=== PATIENT | male | born 1955 | race Caucasian/White ===

== ENCOUNTER 2016-09-04 10:50 | Emergency (ER) | payer BC ==
[2016-09-04 11:41] VITALS: BP 145/81
--- NOTE | 2016-09-05 13:03 | UC ---
Christo Adame Salem, scribed for [facility] kong MD on 09/04/16 at 1227 . Skin Complaint HPI - HPI Summary HPI Summary: In Room note: Patient is a 61 y/o male who presents to the with a concern of a tick bite on RUE for unknown duration of time and on his neck since yesterday. Pt ahs no hx of Lyme disease. 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 MD note: VSS, 145/81, Visit hx: non-contributory. On no hypertensive medication. Nurses note: C/o tick bite on R upper arm and just below L side of clavicle area that pt noticed yesterday. 2- states L 3rd finger that he has pain with for a few month. - History of Current Complaint Chief Complaint: UCSkin Time Seen by Provider: 09/04/16 12:14 Stated Complaint: TICK BITES, FINGER ISSUE Hx Obtained From: Patient Onset/Duration: Gradual Onset, Lasting Days, Still Present Timing: Constant Onset Severity: Moderate Current Severity: Moderate Location: Other - RUE and neck. Character: Redness Aggravating: Nothing Alleviating: Nothing Associated Signs & Symptoms: Positive: Negative Related History: Insect Bite/Sting - Possible. - Allergy/Home Medications Allergies/Adverse Reactions: Allergies Allergy/AdvReac Type Severity Reaction Status Date / Time Clindamycin AdvReac Severe lump under Verified 09/04/16 11:34 [From Cleocin HCl] left axialle Review of Systems Constitutional: Negative Skin: Other - Possible tick bit to RUE and neck. Musculoskeletal: Other: - Left finger locks in place. (Pt is right handed.) All Other Systems Reviewed And Are Negative: Yes PMH/Surg Hx/FS Hx/Imm Hx Endocrine History Of: Denies: Diabetes, Thyroid Disease Cardiovascular History Of: Reports: Cardiac Disorders - ? HX OF ANGINA; ON BABY ASPIRIN Denies: Hypertension, Pacemaker/ICD Respiratory History Of: Denies: COPD, Asthma GI/ History Of: Denies: Ulcer - Surgical History Surgical History: Yes Surgery Procedure, Year, and Place: Moles removed from back. - Family History Known Family History: Positive: Diabetes - Social History Alcohol Use: Occasionally Substance Use Type: None Smoking Status (MU): Never Smoked Tobacco - Immunization History Most Recent Tetanus Shot: states he's had one within 5 years Vaccination Up to Date: Yes Physical Exam Triage Information Reviewed: Yes Appearance: Well-Appearing, No Pain Distress, Obese Vital Signs: Initial Vital Signs Temp 98.7 F 09/04/16 11:35 Pulse 70 09/04/16 11:35 Resp 18 09/04/16 11:35 BP 145/81 09/04/16 11:35 Pulse Ox 99 09/04/16 11:35 Vital Signs Reviewed: Yes Eyes: Positive: Conjunctiva Clear ENT: Positive: Hearing grossly normal, Pharynx normal, TMs normal. Negative: Muffled/hoarse voice Neck: Positive: Supple, No Lymphadenopathy Respiratory: Positive: Chest non-tender, Lungs clear, Normal breath sounds, No respiratory distress Cardiovascular: Positive: RRR, No Murmur Abdomen Description: Positive: Nontender, No Organomegaly, Soft Bowel Sounds: Positive: Present Musculoskeletal: Positive: ROM Intact, Other: - LEFT HAND LONG FINGERS SHOWS SOME DISCOMFORT WITH FLEXION AT PIP AND SOME ENLARGEMENT OF FLEXOR TENDON. WE DISCUSSED CONTRACTURE OF THIS TENDON. RIGHT UPPER ARM INNER ASPECT BICEP 1CM CROSSED LESION WITH SURROUNDING ERYTHEMA. ANOTHER SIMILAR LESION OF SAME SIZE TO THE LEFT OF STERNOCLAVICULAR NOTCH. NO AXILLARY ADENOPATHY. NO EVIDENCE OF CELLULITIS. Neurological: Positive: Alert Psychological: Positive: Age Appropriate Behavior Skin: Positive: Other - BILATERAL HANDS SHOW DYSHIDROTIC.. Negative: rashes Course/Dx - Course Course Of Treatment: Medications have been included in the original chart and reviewed. We discussed contraction of flexor tendon of long finger of left hand. We also discussed treating him for 2 weeks for presumptive Lyme disease because of the two locations of possible tick bites with surrounding erythema. We emphasized that I cannot be sure that is or isnt Lyme but that he should follow up with his PCP. Patient is Urgent/Emergent. BP elevated due to current condition w/o HTN in PMH. - Diagnoses Provider Diagnoses: Possible Lyme or early dupuytrens contracture. Discharge - Discharge Plan Condition: Stable Disposition: HOME Prescriptions: DOXYcycline CAP(*) [DOXYcycline 100MG CAP(*)] 100 mg PO BID #28 cap MDD 2 Patient Education Materials: Lyme Disease (ED) Referrals: Philip Murray MD [Primary Care Provider] - Additional Instructions: Thank you for helping us improve patient care by filling out the My Point Survey. WE DISCUSSED: 1. These small areas may be from a tick bite. There are 2 of them. It's hard to know but they look similar to a response to a tick bite and Lyme. Begin doxycycline, 100mg, twice a day for 14 days. Follow up with your doctor. Clean these areas twice a day. Use antibiotic ointment on these areas. 2. 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 Use the splint at night. Follow up with your doctor for orthopedic referral. Call for any questions or concerns. The documentation as recorded by the Christo fox Salem accurately reflects the service I personally performed and the decisions made by me, Robb Jacob MD.
== END 2016-09-04 12:40 | disposition home or self-care (01) ==
LOC: UCEAST 10:50
DX: M20.092 Other deformity of left finger(s) (principal); Z79.82 Long term (current) use of aspirin; L98.9 Disorder of the skin and subcutaneous tissue, unspecified
CPT/HCPCS: 99213; G0463

== ENCOUNTER 2019-05-01 09:55 | Emergency (ER) | payer BC ==
[2019-05-01] MEDS ORDERED: NS 0.9% 1000 ML** 1,000 ML IV ONE (10:49)
--- NOTE | 2019-05-01 10:53 | ED ---
Abdominal Pain/Male - HPI Summary HPI Summary: Patient is a 64 y/o M presenting to the ED for a chief complaint of diffuse abdominal pain that began around 12:00 on 04/29/19, 4 hours after eating [employer]. At that time, patient notes diffuse abdominal pain that prevented him from sleeping that night. On 04/30/19, patient reports that after drinking coffee, eating a breakfast sandwich, cake, and spaghetti during the day, he felt the abdominal pain again around midnight. The abdominal pain is described as beginning in the epigastrium and radiating to the lower back and the suprapubic region. Patient also notes changes in bowel movements recently that are described as "small and thin," which is unusual for him. The abdominal pain is currently improved, but patient continues to complain of abdominal discomfort. Patient denies hematochezia, nausea, vomiting, diarrhea, urinary symptoms, or groin pain. He was recommended to go to [facility] by his PCP. PMHx of cholelithiasis, ulcers, Crohn's disease, DM, or HTN is denied. PMSx is denied, but he notes a history of biopsy of moles on his back. FMHx is significant for DM and HTN. Patient takes aspirin daily. - History of Current Complaint Chief Complaint: EDAbdPain Stated Complaint: ABDOMINAL,BACK PAIN PER PT Time Seen by Provider: 05/01/19 10:40 Hx Obtained From: Patient Onset/Duration: Sudden Onset, Lasting Days, Resolved Timing: Intermittent Severity Initially: Mild Severity Currently: Mild Pain Intensity: 3 Pain Scale Used: 0-10 Numeric Location: Diffuse Radiates: Yes Radiates to: Back Aggravating Factor(s): Nothing Alleviating Factor(s): Nothing Associated Signs And Symptoms: Positive: Back Pain. Negative: Blood in Stool, Urinary Symptoms, Nausea, Vomiting, Diarrhea - Allergies/Home Medications Allergies/Adverse Reactions: Allergies Allergy/AdvReac Type Severity Reaction Status Date / Time MS Clindamycin AdvReac Severe lump under Verified 05/01/19 10:51 [From Cleocin HCl] left axialle PMH/Surg Hx/FS Hx/Imm Hx Previously Healthy: Yes Endocrine/Hematology History: Denies: Hx Diabetes, Hx Thyroid Disease Cardiovascular History: Denies: Hx Hypertension, Hx Pacemaker/ICD Respiratory History: Denies: Hx Asthma, Hx Chronic Obstructive Pulmonary Disease (COPD) GI History: Denies: Hx Crohn's Disease, Hx Ulcer History: Denies: Hx Renal Disease Sensory History: Denies: Hx Legally Blind, Hx Deafness, Hx Hearing Aid Opthamlomology History: Denies: Hx Legally Blind EENT History: Denies: Hx Deafness Psychiatric History: Denies: Hx Panic Disorder - Surgical History Surgical History: Yes Surgery Procedure, Year, and Place: Moles removed from back. Infectious Disease History: No Infectious Disease History: Denies: Hx Clostridium Difficile, Hx Hepatitis, Hx Human Immunodeficiency Virus (HIV), Hx of Known/Suspected MRSA, Hx Shingles, Hx Tuberculosis, Hx Known/ Suspected VRE, Hx Known/Suspected VRSA, History Other Infectious Disease, Traveled Outside the [place] in Last 30 Days - Family History Known Family History: Positive: Hypertension, Diabetes - Social History Occupation: Employed Full-time Lives: With Family Alcohol Use: Occasionally Hx Substance Use: No Substance Use Type: Reports: None Hx Tobacco Use: No Smoking Status (MU): Never Smoked Tobacco Review of Systems Positive: Abdominal Pain - Diffuse, Other - Positive changes in bowel movements ; negative hematochezia. Negative: Vomiting, Diarrhea, Nausea Positive: no symptoms reported. Negative: pain - Groin Positive: Myalgia - Lower back All Other Systems Reviewed And Are Negative: Yes Physical Exam - Summary Physical Exam Summary: Constitutional: Well-developed, Well-nourished, Alert. (-) Distressed Skin: Warm, Dry HENT: Normocephalic; Atraumatic Eyes: Conjunctiva normal Neck: Musculoskeletal ROM normal neck. (-) JVD, (-) Stridor, (-) Tracheal deviation Cardio: Rhythm regular, rate normal, Heart sounds normal; Intact distal pulses; The pedal pulses are 2+ and symmetric. Radial pulses are 2+ and symmetric. (-) Murmur Pulmonary/Chest wall: Effort normal. (-) Respiratory distress, (-) Wheezes, (-) Rales Abd: Soft, (-) tenderness, (-) Distension, (-) Guarding, (-) Rebound. Normal bowel sounds. Musculoskeletal: (-) Edema Lymph: (-) Cervical adenopathy Neuro: Alert, Oriented x3 Psych: Mood and affect Normal Triage Information Reviewed: Yes Vital Signs On Initial Exam: Initial Vitals Temp Pulse Resp BP Pulse Ox 98.4 F 54 18 173/80 99 05/01/19 09:57 05/01/19 09:57 05/01/19 09:57 05/01/19 09:57 05/01/19 09:57 Vital Signs Reviewed: Yes Procedures - Sedation Patient Received Moderate/Deep Sedation with Procedure: No Diagnostics - Vital Signs Vital Signs Temp Pulse Resp BP Pulse Ox 05/01/19 09:57 98.4 F 54 18 173/80 99 - Laboratory Result Diagrams: 05/01/19 10:57 05/01/19 10:57 Lab Statement: Any lab studies that have been ordered have been reviewed, and results considered in the medical decision making process. - CT Abdomen/Pelvis CT CT Interpretation Completed By: Radiologist Summary of CT Findings: Abdomen/Pelvis CT IMPRESSION: No abnormal masses or fluid collections are noted. No evidence of bowel obstruction is noted. Enlarged prostate is noted. Reviewed by Dr. Strickland. Abdominal Pain Male Course/Dx - Course Course Of Treatment: Patient is a 64 y/o M presenting to the ED for a chief complaint of diffuse abdominal pain that began around 12:00 on 04/29/19, 4 hours after eating [employer]. At that time, patient notes diffuse abdominal pain that prevented him from sleeping that night. On 04/30/19, patient reports that after drinking coffee, eating a breakfast sandwich, cake, and spaghetti during the day, he felt the abdominal pain again around midnight. The abdominal pain is described as beginning in the epigastrium and radiating to the lower back and the suprapubic region. Patient also notes changes in bowel movements recently that are described as "small and thin," which is unusual for him. The abdominal pain is currently improved, but patient continues to complain of abdominal discomfort. Patient denies hematochezia, nausea, vomiting, diarrhea, urinary symptoms, or groin pain. He was recommended to go to [facility] by his PCP. PMHx of cholelithiasis, ulcers, Crohn's disease, DM, or HTN is denied. PMSx is denied, but he notes a history of biopsy of moles on his back. FMHx is significant for DM and HTN. Patient takes aspirin daily. On exam, soft, non- tender abdomen, normal bowel sounds. In the ED course, patient was given omnipaque 125 ml IV and IV fluids. Laboratory abnormal findings: Hct 41, MCH 32 , glucose 135, urine blood 1+. Abdomen/Pelvis CT IMPRESSION: No abnormal masses or fluid collections are noted. No evidence of bowel obstruction is noted. Enlarged prostate is noted. Patient will be discharged with a diagnosis of abdominal pain. Follow up with PCP in 1-2 days. - Diagnoses Provider Diagnoses: Abdominal pain Discharge ED - Sign-Out/Discharge Documenting (check all that apply): Patient Departure - Discharge - Discharge Plan Condition: Stable Disposition: HOME Patient Education Materials: Abdominal Pain (ED) Referrals: Philip Murray MD [Primary Care Provider] - Additional Instructions: RETURN TO THE EMERGENCY DEPARTMENT FOR CHANGING OR WORSENING SYMPTOMS. Follow up with your primary care physician within 1-2 days. - Billing Disposition and Condition Condition: STABLE Disposition: Home - Attestation Statements Document Initiated by Emily: Yes Documenting Scribe: Livia Monet Provider For Whom Emily is Documenting (Include Credential): Lucius Strickland DO Scribe Attestation: Livia Adame scribed for Lucius Strickland DO on 05/01/19 at 1418. Scribe Documentation Reviewed: Yes Provider Attestation: The documentation as recorded by the Livia fox accurately reflects the service I personally performed and the decisions made by , Lucius Strickland DO Status of Scribnyla Document: Viewed
[2019-05-01 11:14] LABS: ABS Basophils 0.1 10^3/ul (0-0.2); ABS Eosinophils 0.1 10^3/ul (0-0.6); ABS Lymphocytes 1.2 10^3/ul (1.0-4.8); ABS Monocytes 0.5 10^3/ul (0-0.8); Eosinophil % 1.6 %; Hematocrit 41 % (42-52); Hemoglobin 14.2 g/dL (14.0-18.0); Lymphocyte % 19.9 %; Mean Corpuscular HGB Conc 35 g/dL (31-36); Mean Corpuscular Hemoglobin 32 pg (27-31); Mean Corpuscular Volume 91 fL (80-94); Nucleated Red Blood Cells % 0.1; Platelet Count 179 10^3/uL (150-450); Red Blood Count 4.48 10^6 /uL (4.18-5.48); Red Cell Distribution Width 13 % (10-15); White Blood Count 5.9 10^3/uL (3.5-10.8)
[2019-05-01 11:28] LABS: Albumin 4.7 g/dL (3.2-5.2); Albumin/Globulin Ratio 1.6 (1-3); Calcium 9.1 mg/dL (8.6-10.3); EGFR African American 98.4 (>60); EGFR Non-African American 81.3 (>60); Globulin 2.9 g/dL (2-4); Potassium 4.7 mmol/L (3.5-5.0); Total Bilirubin 0.8 mg/dL (0.2-1.0); Total Protein 7.6 g/dL (6.4-8.9)
[2019-05-01] MEDS ORDERED: Iohexol 300* (CONTRAST) 10 ML SDV IV ONE (12:42)
[2019-05-01 12:45] LABS: Urine Appearance Clear; Urine Bilirubin Negative (Negative); Urine Blood 1+ (Negative); Urine Color Yellow; Urine Glucose Negative (Negative); Urine Ketones Negative (Negative); Urine Nitrite Negative (Negative); Urine Protein Negative (Negative); Urine Specific Gravity 1.012 (1.010-1.030); Urine Urobilinogen Negative (Negative)
[2019-05-01 12:58] LABS: Urine Bacteria Absent (Absent); Urine Red Blood Cell Trace(0-2/hpf) (Absent); Urine White Blood Cell Trace(0-5/hpf) (Absent)
[2019-05-01 13:44] VITALS: BP 146/88
== END 2019-05-01 13:43 | disposition home or self-care (01) ==
LOC: ED 09:55
DX: R10.9 Unspecified abdominal pain (principal); M54.9 Dorsalgia, unspecified; E11.9 Type 2 diabetes mellitus without complications; I10 Essential (primary) hypertension; K50.90 Crohn's disease, unspecified, without complications
CPT/HCPCS: 36415; 74177; 80053; 81003; 81015; 83690; 85025; 87086; 96374; 99283; Q9967